=== PATIENT | male | born 1955 | race African-American/Black ===

== ENCOUNTER 2021-11-04 11:45 | Inpatient (IN) | payer OTHER ==
[2021-11-04] MEDS ORDERED: SODIUM CHLORIDE 0.9% 500 ML INFUS.BAG IV ONE ×2 (12:23→17:10)
[2021-11-04] MEDS ORDERED: LORazepam 2 MG/ML SDV VIAL IVPUSH ONE ×3 (12:24→14:36)
[2021-11-04 12:46] LABS: BASO % 0.9 % (0-2.0); EOS % 0.5 % (0-4.5); HEMATOCRIT 43.9 % (35.4-49); HEMOGLOBIN 14.4 GM/dL (11.7-16.9); MCH 30.4 pg (25.7-33.7); MCHC 32.7 g/dl (32.0-35.9); MEAN CELL VOLUME 92.9 fl (80-96); MEAN PLT VOLUME 8.3 fl (7.5-11.1); MONO % 5.2 % (3.8-10.2); NEUT % 53.4 % (42.8-82.8); PLATELET COUNT 213 10^3/uL (134-434); RBC 4.73 M/mm3 (4.00-5.60); RDW 14.3 % (11.9-15.9); WHITE BLOOD COUNT 11.1 K/mm3 (4.0-10.0)
[2021-11-04 13:00] LABS: VENOUS BASE EXCESS -3.3 mmol/L (-2-2); VENOUS O2 SATURATION 63.1 % (70-80); VENOUS PCO2 53.2 mmHg (38-52); VENOUS PH 7.276 (7.310-7.410)
[2021-11-04 13:07] LABS: CHLORIDE 106 mmol/L (98-107); SODIUM 140 mmol/L (136-145)
[2021-11-04 13:08] VITALS: BMI 25.8
[2021-11-04 13:09] LABS: ALBUMIN 3.2 g/dl (3.4-5.0); ANION GAP 11 MMOL/L (8-16); CALCIUM 8.9 mg/dL (8.5-10.1); CO2 24 mmol/L (21-32); GLUCOSE,RANDOM 199 mg/dL (74-106)
[2021-11-04 13:12] LABS: CREATININE 1.3 mg/dL (0.55-1.3); SGOT/AST 16 U/L (15-37); SGPT/ALT 13 U/L (13-61)
[2021-11-04 13:14] LABS: BILIRUBIN,TOTAL 0.3 mg/dL (0.2-1); TOT PROT 6.8 g/dl (6.4-8.2)
[2021-11-04 13:16] LABS: ALK PHOS 66 U/L (45-117)
[2021-11-04 13:30] LABS: LACTIC ACID 5.9 mmol/L (0.4-2.0)
[2021-11-04 16:45] LABS: LACTIC ACID 3.4 mmol/L (0.4-2.0)
[2021-11-04] MEDS ORDERED: ASPIRIN SUPPOSITORY 600 MG SUPP.RECT PR ONE (16:54)
[2021-11-04] MEDS ORDERED: ASPIRIN 300 MG SUPP.RECT RC ONE ×2 (16:57→17:02)
[2021-11-04 18:18] LABS: PH,URINE >= 9.0 (5.0-8.0); URINE APPEARANCE CLEAR; URINE BILIRUBIN NEGATIVE (NEGATIVE); URINE COLOR YELLOW; URINE GLUCOSE (UA) NEGATIVE (NEGATIVE); URINE KETONE NEGATIVE (NEGATIVE); URINE LEUK ESTERASE NEGATIVE (NEGATIVE); URINE NITRITE NEGATIVE (NEGATIVE); URINE PROTEIN NEGATIVE (NEGATIVE); URINE UROBILINOGEN 0.2 mg/dL (0.2-1.0)
[2021-11-04 18:26] LABS: PHENCYCLIDINE,URINE NEGATIVE (NEGATIVE)
[2021-11-04 18:27] LABS: COCAINE, UR NEGATIVE (NEGATIVE); METHADONE, UR NEGATIVE (NEGATIVE); OPIATES, URI NEGATIVE (NEGATIVE); URINE AMPHETAMINES NEGATIVE (NEGATIVE); URINE BARBITURATES NEGATIVE (NEGATIVE); URINE BENZODIAZEPINES POSITIVE (NEGATIVE)
[2021-11-04] MEDS ORDERED: SODIUM CHLORIDE 1,000 ML IV SCH (22:15)
[2021-11-05 00:20] LABS: INR 1.05 (0.83-1.09); PROTHROMBIN TIME (PATIENT) 12.1 SEC (9.7-13.0)
[2021-11-05 00:21] LABS: ACTIVATED PTT 27.3 SECONDS (25.2-36.5)
[2021-11-05] MEDS ORDERED: HEPARIN NA (PORCINE) 5,000 UNITS/ML 1ML VIAL IVPUSH PRN (01:11)
[2021-11-05] MEDS ORDERED: HEPARIN - 25,000 UNIT in SODIUM CHLORIDE 495 ML IV SCH (01:15)
[2021-11-05] MEDS: HEPARIN SOD,PORK IN 0.45% NACL 25,000 UNITS/500 ML INFUS.BAG IVPB SCH ×2 (02:18→08:00)
[2021-11-05] MEDS ORDERED: HEPARIN NA (PORCINE) 5,000 UNITS/ML 1ML VIAL IVPUSH ONE (02:50)
[2021-11-05] MEDS ORDERED: HEPARIN NA (PORCINE) 5,000 UNITS/ML 1ML VIAL ONE (02:57)
[2021-11-05 07:31] LABS: BASO % 0.3 % (0-2.0); EOS % 0.2 % (0-4.5); HEMATOCRIT 42.9 % (35.4-49); HEMOGLOBIN 14.2 GM/dL (11.7-16.9); LYMPH % 20.5 % (8-40); MCH 30.4 pg (25.7-33.7); MEAN PLT VOLUME 9.1 fl (7.5-11.1); MONO % 6.9 % (3.8-10.2); NEUT % 72.1 % (42.8-82.8); PLATELET COUNT 167 10^3/uL (134-434); RBC 4.67 M/mm3 (4.00-5.60); RDW 14.1 % (11.9-15.9)
[2021-11-05 09:00] LABS: BLOOD UREA NITROGEN 9.4 mg/dL (7-18)
[2021-11-05 09:01] LABS: ALBUMIN 3.1 g/dl (3.4-5.0); CALCIUM 8.4 mg/dL (8.5-10.1); MAGNESIUM 2.2 mg/dL (1.8-2.4)
[2021-11-05 09:04] LABS: BILIRUBIN,TOTAL 0.6 mg/dL (0.2-1); TOT PROT 6.6 g/dl (6.4-8.2)
[2021-11-05] MEDS ORDERED: ENOXAPARIN NA (PORCINE) 40 MG/0.4 ML DISP.SYRIN SQ SCH (10:00)
[2021-11-05] MEDS: ASPIRIN COATED 81 MG TABLET.EC PO SCH (10:26)
[2021-11-05] MEDS: THIAMINE HCL 100 MG TABLET (FP) PO SCH (10:26)
[2021-11-05] MEDS: FOLIC ACID 1 MG TABLET (FP) PO SCH (10:26)
[2021-11-05] MEDS: LACTATED RINGERS SOLUTION 1,000 ML/1,000 ML INFUS.BAG IV SCH (21:07)
[2021-11-06 06:12] LABS: HEMATOCRIT 41.1 % (35.4-49); HEMOGLOBIN 13.9 GM/dL (11.7-16.9); MCH 30.5 pg (25.7-33.7); MCHC 33.7 g/dl (32.0-35.9); MEAN CELL VOLUME 90.5 fl (80-96); MEAN PLT VOLUME 8.2 fl (7.5-11.1); PLATELET COUNT 125 10^3/uL (134-434); RBC 4.55 M/mm3 (4.00-5.60); RDW 13.9 % (11.9-15.9); WHITE BLOOD COUNT 10.3 K/mm3 (4.0-10.0)
[2021-11-06 06:45] LABS: ALBUMIN 2.6 g/dl (3.4-5.0); BILIRUBIN,TOTAL 0.4 mg/dL (0.2-1); BLOOD UREA NITROGEN 8.1 mg/dL (7-18); CALCIUM 7.8 mg/dL (8.5-10.1); MAGNESIUM 2.1 mg/dL (1.8-2.4); PHOSPHOROUS 2.9 mg/dL (2.5-4.9); TOT PROT 5.9 g/dl (6.4-8.2)
[2021-11-06] MEDS: HEPARIN SOD,PORK IN 0.45% NACL 25,000 UNITS/500 ML INFUS.BAG IVPB SCH ×2 (06:58→08:00)
[2021-11-06] MEDS: HEPARIN NA (PORCINE) 5,000 UNITS/ML 1ML VIAL IVPUSH PRN ×2 (06:58→08:00)
[2021-11-06] MEDS: THIAMINE HCL 100 MG TABLET (FP) PO SCH (09:48)
[2021-11-06] MEDS: ASPIRIN COATED 81 MG TABLET.EC PO SCH (09:48)
[2021-11-06] MEDS: FOLIC ACID 1 MG TABLET (FP) PO SCH (09:48)
[2021-11-06 09:57] LABS: N-TERMINAL BNP 1982.6 pg/ml (5-125)
[2021-11-06] MEDS: LACTATED RINGERS SOLUTION 1,000 ML/1,000 ML INFUS.BAG IV SCH (18:55)
[2021-11-07] MEDS: HEPARIN SOD,PORK IN 0.45% NACL 25,000 UNITS/500 ML INFUS.BAG IVPB SCH (02:12)
[2021-11-07] MEDS ORDERED: RAPID SEQUENCE INTUBATION KIT NR ONE (06:55)
[2021-11-07 07:16] LABS: HEMATOCRIT 38.9 % (35.4-49); MCH 30.2 pg (25.7-33.7); MCHC 33.3 g/dl (32.0-35.9); MEAN CELL VOLUME 90.7 fl (80-96); MEAN PLT VOLUME 9.1 fl (7.5-11.1); PLATELET COUNT 157 10^3/uL (134-434); RBC 4.29 M/mm3 (4.00-5.60); RDW 13.9 % (11.9-15.9); WHITE BLOOD COUNT 9.5 K/mm3 (4.0-10.0)
[2021-11-07 07:52] LABS: BLOOD UREA NITROGEN 6.1 mg/dL (7-18); CALCIUM 8.3 mg/dL (8.5-10.1)
[2021-11-07 07:56] LABS: CREATININE 0.8 mg/dL (0.55-1.3)
[2021-11-07] MEDS: ASPIRIN COATED 81 MG TABLET.EC PO SCH (10:07)
[2021-11-07] MEDS: FOLIC ACID 1 MG TABLET (FP) PO SCH (10:07)
[2021-11-07] MEDS: THIAMINE HCL 100 MG TABLET (FP) PO SCH (10:07)
[2021-11-07 15:10] VITALS: BP 114/58; PULSE 18; TEMP 98
== END 2021-11-07 18:31 | disposition home or self-care (01) | DRG 100 ==
LOC: JER 11:45 → JERBED 19:51 → J4W 11-05 03:52
PROVIDERS: ADMIT Internal Medicine; ATTEND Internal Medicine
DX: G40.909 Epilepsy, unspecified, not intractable, without status epilepticus (principal); I21.3 ST elevation (STEMI) myocardial infarction of unspecified site; F05 Delirium due to known physiological condition; E87.2 Acidosis; I24.8 Other forms of acute ischemic heart disease; I47.2 Ventricular tachycardia; M62.82 Rhabdomyolysis; F12.90 Cannabis use, unspecified, uncomplicated; D72.829 Elevated white blood cell count, unspecified; F17.210 Nicotine dependence, cigarettes, uncomplicated; R74.01 Elevation of levels of liver transaminase levels
CPT/HCPCS: 36415; 70450-TC; 70496-TC; 70498-TC; 71045-TC-FY; 80048; 80053; 80061; 80307; 81003; 82550; 82553; 82803; 82962; 83036; 83605; 83735; 83880; 84100; 84443; 84484; 85025; 85027; 85610; 85730; 93005; 93010; 93306-TC; 93880-TC; 99285-25; C9803-CS; J1644; U0003; U0005

== ENCOUNTER 2022-03-13 17:37 | Inpatient (IN) | payer OTHER ==
[2022-03-13 17:59] VITALS: BMI 25.0
[2022-03-13 19:59] LABS: BASO % 0.8 % (0-2.0); EOS % 0.3 % (0-4.5); HEMATOCRIT 39.7 % (35.4-49); HEMOGLOBIN 13.4 GM/dL (11.7-16.9); LYMPH % 17.2 % (8-40); MCH 30.8 pg (25.7-33.7); MCHC 33.8 g/dl (32.0-35.9); MEAN CELL VOLUME 91.1 fl (80-96); MEAN PLT VOLUME 7.5 fl (7.5-11.1); MONO % 4.7 % (3.8-10.2); PLATELET COUNT 209 10^3/uL (134-434); RBC 4.36 M/mm3 (4.00-5.60); RDW 15.7 % (11.9-15.9); WHITE BLOOD COUNT 9.8 K/mm3 (4.0-10.0)
[2022-03-13 20:16] LABS: VENOUS BASE EXCESS 0.5 mmol/L (-2-2); VENOUS O2 SATURATION 17.4 % (70-80); VENOUS PCO2 57.6 mmHg (38-52); VENOUS PH 7.307 (7.310-7.410)
[2022-03-13 20:25] LABS: BLOOD UREA NITROGEN 10.7 mg/dL (7-18); CALCIUM 8.4 mg/dL (8.5-10.1)
[2022-03-13 20:26] LABS: ALBUMIN 3.3 g/dl (3.4-5.0)
[2022-03-13 20:29] LABS: CREATININE 0.9 mg/dL (0.55-1.3)
[2022-03-13 20:30] LABS: BILIRUBIN,TOTAL 0.4 mg/dL (0.2-1); TOT PROT 6.9 g/dl (6.4-8.2)
[2022-03-13] MEDS ORDERED: LORazepam 2 MG/ML SDV VIAL IVPUSH STA (22:03)
[2022-03-13] MEDS ORDERED: levETIRAcetam 500 MG/5 ML INJECTION VIAL IVPB ONE ×2 (22:17→22:27)
[2022-03-14 06:48] LABS: HEMATOCRIT 40.1 % (35.4-49); HEMOGLOBIN 13.5 GM/dL (11.7-16.9); MCH 30.5 pg (25.7-33.7); MCHC 33.6 g/dl (32.0-35.9); MEAN CELL VOLUME 90.9 fl (80-96); MEAN PLT VOLUME 8.5 fl (7.5-11.1); PLATELET COUNT 167 10^3/uL (134-434); RBC 4.41 M/mm3 (4.00-5.60); RDW 15.3 % (11.9-15.9); WHITE BLOOD COUNT 10.7 K/mm3 (4.0-10.0)
[2022-03-14 07:09] LABS: ALBUMIN 3.2 g/dl (3.4-5.0); BLOOD UREA NITROGEN 8.2 mg/dL (7-18); CALCIUM 8.3 mg/dL (8.5-10.1); MAGNESIUM 2.1 mg/dL (1.8-2.4)
[2022-03-14 07:12] LABS: CREATININE 0.8 mg/dL (0.55-1.3); PHOSPHOROUS 2.5 mg/dL (2.5-4.9)
[2022-03-14 07:14] LABS: BILIRUBIN,TOTAL 0.6 mg/dL (0.2-1); TOT PROT 6.6 g/dl (6.4-8.2)
[2022-03-14 08:01] VITALS: RESP 16
[2022-03-14] MEDS ORDERED: levETIRAcetam 500 MG/5 ML INJECTION VIAL IVPB ONE (09:26)
[2022-03-14] MEDS ORDERED: ENOXAPARIN NA (PORCINE) 40 MG/0.4 ML DISP.SYRIN SQ ONE (09:27)
[2022-03-14] MEDS ORDERED: ENOXAPARIN NA (PORCINE) 40 MG/0.4 ML DISP.SYRIN SQ SCH (10:00)
[2022-03-14] MEDS ORDERED: levETIRAcetam 500 MG/5 ML INJECTION VIAL IVPB SCH (10:00)
[2022-03-14 16:07] VITALS: PULSE 58; TEMP 98
[2022-03-14 16:08] VITALS: BP 105/63
== END 2022-03-14 16:00 | disposition left against medical advice (07) | DRG 101 ==
LOC: JER 17:37 → JERBED 19:31
PROVIDERS: ADMIT Internal Medicine; ATTEND Internal Medicine
DX: G40.802 Other epilepsy, not intractable, without status epilepticus (principal); R77.8 Other specified abnormalities of plasma proteins
CPT/HCPCS: 36415; 70450-TC; 70486-TC; 72125-TC; 80053; 80307; 82550; 82803; 82962; 83605; 83735; 84100; 84484; 85025; 85027; 93005; 93010; 99285-25; C9803-CS; U0003; U0005